=== PATIENT | female | born 1980 | race Caucasian/White ===

== ENCOUNTER 2017-06-12 13:30 | Emergency (ER) | payer BC ==
[~2017-06-12] VITALS: Ht 167.6 cm; Wt 103.1 kg
[2017-06-12 13:32] VITALS: BP 152/91
== END 2017-06-12 14:13 | disposition home or self-care (01) ==
LOC: ED 14:00
DX: J01.00 Acute maxillary sinusitis, unspecified (principal)
CPT/HCPCS: 99283